=== PATIENT | female | born 1965 | race Caucasian/White ===

== ENCOUNTER 2017-07-23 14:20 | Day surgery (SDC) | payer OTHER ==
[~2017-07-23] VITALS: Ht 165.1 cm; Wt 72.0 kg
[2017-07-23 15:52] VITALS: Ht 165.1 cm; Wt 72.0 kg
[2017-07-23] MEDS ORDERED: LISI10TA2 PO (15:59)
[2017-07-23] MEDS ORDERED: PROP10TA6 PO (15:59)
[2017-07-23] MEDS ORDERED: FLUO20CA22 PO (15:59)
[2017-07-23 16:07] VITALS: BP 120/81; PULSE 51; RESP 12
[2017-07-23] MEDS ORDERED: MIDAZOLAM 1 MG/ML 2 ML INJ ONE ×2 (17:24)
[2017-07-23] MEDS ORDERED: FENTAnyl 50 MCG/ML VIAL ONE (17:24)
--- NOTE | 2017-07-23 17:26 | OPPN ---
Date/Time of Note Date/Time of Note DATE: 07/23/17 TIME: 17:25 Operative Report Preoperative Diagnosis Screening Postoperative Diagnosis Internal hemorrhoids Operation/Procedure Performed Colonoscopy Provider: DAVE SANDHU MD Anesthesia Type: moderate sedation Estimated blood loss: none Transfusion Required: no Specimen: none Grafts/Implants: none Complications: no DAVE SANDHU MD Jul 23, 2017 17:26
[2017-07-23 17:49] VITALS: BP 106/65; PULSE 48; RESP 14
--- NOTE | 2017-07-23 20:07 | GILP ---
DATE OF PROCEDURE: 07/23/2017 PROCEDURE PERFORMED: Colonoscopy. PREOPERATIVE DIAGNOSIS: Screening colonoscopy. POSTOPERATIVE DIAGNOSES: 1. Colonoscopy all the way to the cecum. 2. Internal hemorrhoids. 3. No colon neoplasm was identified. INDICATION: Ms. Arianna Eisenberg is a 51-year-old female patient who was scheduled for screening colonoscopy. The procedure and possible complications were well explained to the patient. The patient understood and consented to the procedure. DESCRIPTION OF PROCEDURE: Under influence of fentanyl and Versed, the colonoscope was carefully introduced in the rectum. Under direct vision, it was advanced all the way to the cecum. Findings, the patient had internal hemorrhoids. No colon neoplasm was identified. She tolerated the procedure very well. There was no complication from the procedure. At the end of procedure, she was awake with stable vital signs and she was discharged home in the care of her family. IMPRESSION: Please see postop diagnoses. PLAN: Next screening colonoscopy in 10 years. Dictated By: MD LAYLA Mosqueda/alina/rosemary /Document#: [id number]
--- NOTE | 2017-07-28 12:01 | CONS ---
DATE OF ADMISSION: DATE OF CONSULTATION: 07/20/[address] Breaux, I thank you very much for this kind referral. Ms. Arianna ly is a 51-year-old female patient who has been referred to me for further evaluation of change in the bowel habits. No past history colon neoplasm. The patient has never had a screening colonoscopy. Her appetite is good. No history of weight loss. No upper abdominal pain, nausea, or vomiting. No history of gallstones or liver disease, hypertensive, or diabetic. No heart disease or lung problem. No kidney disease. He has a history of depression. SOCIAL HISTORY: Nonsmoker. Does not abuse alcohol. FAMILY HISTORY: No family history of gastrointestinal tract neoplasm. ALLERGIES: IBUPROFEN. MEDICATIONS: 1. Lisinopril. 2. Propranolol. 3. Paxil. PHYSICAL EXAMINATION: VITALS: He is 5 feet 5 inches tall and weighs 155 pounds. HEART: Normal heart sounds. LUNGS: Clear. ABDOMEN: Soft. No masses. Normal bowel sounds. NEURO: Normal neurological exam. IMPRESSION: 1. Change in the bowel habits. The patient never had a screening colonoscopy. 2. Hypertension. 3. History of depression. 4. Allergic to ibuprofen. PLAN: Screening colonoscopy. The procedure and possible complications were well explained to the patient. The patient understands and consents to the procedure. I thank you once again. With warmest personal regards, Patient Name: Arianna Eisenberg Dictated By: MD LAYLA Mosqueda/alina/rakesh /Document#: [id number]
== END 2017-07-23 18:10 | disposition home or self-care (01) ==
LOC: GIL 14:20
PROVIDERS: ATTEND Internal Medicine Gastroenterology
DX: Z12.11 Encounter for screening for malignant neoplasm of colon (principal); K64.8 Other hemorrhoids; I10 Essential (primary) hypertension
CPT/HCPCS: 45378; J2250; J3010; Z7610